=== PATIENT | male | born 1980 | race Caucasian/White ===

== ENCOUNTER 2019-09-04 18:03 | Emergency (ER) | payer OTHER ==
[~2019-09-04] VITALS: Ht 177.8 cm; Wt 79.4 kg
[2019-09-04 20:39] VITALS: BP 131/75
--- NOTE | 2019-09-05 09:00 | EKG ---
[facility] [place] [place] [address] ELECTROCARDIOGRAM REPORT Name: VIMAL BRAGA Room #: DEP [facility].#: [id number] Admission: 09/04/19 Attend Phys: Discharge: 09/04/19 Date of : 82 Report #: [id number] THIS REPORT FOR: cc: FAM - Family physician unknown FAM - Family physician unknown Ortiz Jamil MD ~ THIS REPORT FOR: //name// [facility] ED Test Date: 2019-09-04 Test Time: 18:46:07 Pat Name: VIMAL BRAGA Department: Room: Gender: Surgery Assistant: : 1980 Requested By: Jose L Colon Order Number: [id number] MD: Ortiz Jamil Measurements Intervals [place] Rate: 108 P: 69 DE: 138 QRS: 61 QRSD: 95 T: 42 QT: 332 QTc: 445 Interpretive Statements Sinus tachycardia Probable left atrial enlargement Artifact in lead(s) I,II,aVR,aVL No previous ECG available for comparison Electronically Signed On 09-05-2019 8:59:14 CDT by Ortiz Jamil [email or web address] <ELECTRONICALLY SIGNED> By: Ortiz Jamil MD 09/05/19 0859 [id number] 1846 Ortiz Jamil MD /[facility]
== END 2019-09-04 20:40 | disposition home or self-care (01) ==
LOC: ER 18:03
DX: R07.89 Other chest pain (principal); F41.9 Anxiety disorder, unspecified; F15.10 Other stimulant abuse, uncomplicated; F19.20 Other psychoactive substance dependence, uncomplicated; F17.210 Nicotine dependence, cigarettes, uncomplicated

== ENCOUNTER 2020-11-03 16:25 | Emergency (ER) | payer OTHER ==
[~2020-11-03] VITALS: Ht 175.3 cm; Wt 81.7 kg
[2020-11-03 16:37] VITALS: BP 110/73
[2020-11-03 17:02] LABS: ABSOLUTE NEUTROPHILS 8.3 thou/uL (1.4-8.2); BASOPHILS 0.4 % (0.0-2.0); EOSINOPHILS 0.7 % (0.0-3.0); HEMATOCRIT 43.7 % (42.0-52.0); HEMOGLOBIN 14.9 gm/dL (14.0-18.0); LYMPHOCYTES 11.3 % (24.0-44.0); MCH 29.9 pg (26.0-34.0); MCHC 34.2 g/dL (28.0-37.0); MCV 87.4 fL (80.0-100.0); MONOCYTES 13.7 % (1.0-8.0); PLATELET COUNT 313 thou/uL (150-400); POLYS 73.9 % (36.0-66.0); RBC 5.01 mil/uL (4.50-6.00); RDW 13.3 % (10.5-14.5); WBC 11.3 thou/uL (4.0-11.0)
[2020-11-03 17:14] LABS: ANION GAP 16 mmol/L (7-16); BUN 31 mg/dL (7-18); CALCIUM 8.2 mg/dL (8.5-10.1); CHLORIDE 102 mmol/L (98-107); CO2 22 mmol/L (21-32); CREATININE 1.4 mg/dL (0.7-1.3); GLUCOSE 118 mg/dL (74-106); POTASSIUM 3.1 mmol/L (3.5-5.1); SODIUM 140 mmol/L (136-145)
[2020-11-03 17:31] LABS: ALBUMIN 4.3 g/dL (3.4-5.0); SGOT 81 U/L (15-37); SGPT 113 U/L (16-63); TOTAL BILIRUBIN 1.1 mg/dL (0.2-1.0); TOTAL PROTEIN 7.9 g/dL (6.4-8.2); TROPONIN-I <0.06 ng/mL (<0.06)
--- NOTE | 2020-11-04 08:13 | EKG ---
[facility] [place] [address] ELECTROCARDIOGRAM REPORT Name: VIMAL BRAGA Room #: DEP MAVERICK Harvey#: [id number] Admission: 11/03/20 Attend Phys: Discharge: 11/03/20 Date of : 82 Report #: [id number] [facility] ED Test Date: 2020-11-03 Test Time: 16:33:08 Pat Name: VIMAL BRAGA Department: Room: Gender: M [employer]: TRISH : 1980 Requested By: Ousmane Krueger Order Number: [id number] MD: Haja Sepulveda Measurements Intervals [place] Rate: 128 P: 71 FL: 111 QRS: 57 QRSD: 82 T: 37 QT: 302 QTc: 441 Interpretive Statements Sinus tachycardia Multiple ventricular premature complexes Left atrial enlargement Minimal ST depression, inferior leads Baseline wander in lead(s) I,III,aVL,V6 Compared to ECG 09/04/2019 18:46:07 Ventricular premature complex(es) now present ST (T wave) deviation now present Electronically Signed On 11-04-2020 8:12:51 CDT by Haja Sepulveda [email or web address] <ELECTRONICALLY SIGNED> By: Haja Sepulveda MD, FAC 11/04/20 0812 1633 1633 Haja Sepulveda MD, [facility] /EPI
== END 2020-11-03 17:58 | disposition left against medical advice (07) ==
LOC: ER 16:25
PROVIDERS: Physician Assistant
DX: M62.82 Rhabdomyolysis (principal); N17.9 Acute kidney failure, unspecified; E86.0 Dehydration; F17.210 Nicotine dependence, cigarettes, uncomplicated; Z98.890 Other specified postprocedural states